=== PATIENT | male | born 1980 | race Caucasian/White ===

== ENCOUNTER 2022-10-05 17:02 | Inpatient (IN) | payer OTHER, SELFPAY ==
[~2022-10-05] VITALS: Ht 188 cm; Wt 123.8 kg
[2022-10-05] MEDS ORDERED: BUSP15TA47 PO (17:17)
[2022-10-05] MEDS ORDERED: LISI40TA4 PO (17:17)
[2022-10-05] MEDS ORDERED: NS 1,000 ML IV SCH (18:15)
[2022-10-05] MEDS ORDERED: PANTOPRAZOLE SODIUM 40 MG in D5W 50 ML IV SCH (18:15)
[2022-10-05] MEDS ORDERED: lisinopriL 40MG TAB PO ONE (18:35)
[2022-10-05] MEDS ORDERED: HOME MED LIST COMPLETE! XX SCH (18:35)
[2022-10-05] MEDS ORDERED: hydrALAZINE 20MG/ML 1ML VIAL IV ONE (20:30)
[2022-10-05 21:11] LABS: HEMATOCRIT 37.9 % (42.0-52.0)
[2022-10-05] MEDS ORDERED: TEMAZEPAM 7.5 MG CAP PO PRN (21:20)
[2022-10-05 21:48] LABS: BLOOD UREA NITROGEN 15 MG/DL (9-23); CALCIUM LEVEL 10.4 MG/DL (8.5-10.1); CARBON DIOXIDE LEVEL 27 MMOL/L (20-31); CHLORIDE LEVEL 105 MMOL/L (98-107); CREATININE FOR GFR 1.06 MG/DL (0.70-1.30); GLOMERULAR FILTRATION RATE > 60.0 (>60); GLUCOSE, FASTING 97 MG/DL (60-100); MAGNESIUM LEVEL 1.6 MG/DL (1.8-2.4); POTASSIUM SERUM 4.2 MMOL/L (3.5-5.1); SODIUM LEVEL 140 MMOL/L (136-145)
[2022-10-05 21:50] VITALS: BP 174/90
[2022-10-05] MEDS: **hydrALAZINE** 10 MG TAB PO PRN (22:20)
[2022-10-05] MEDS: PANTOPRAZOLE SODIUM 40 MG in D5W 50 ML IV SCH (22:20)
[2022-10-05] MEDS: NS 1,000 ML IV SCH (22:21)
[2022-10-05] MEDS ORDERED: MORPHINE 2 MG/ML 1ML VIAL IV ONE (22:30)
[2022-10-05] MEDS ORDERED: SUCRALFATE SUSP 1GM/10ML UD PO ONE (22:30)
[2022-10-05] MEDS: MAGNESIUM OXIDE 400MG TAB (MAG-OX) PO SCH (22:49)
[2022-10-06] VITALS (11 sets, daily range): BP systolic 138–162; BP diastolic 72–108
[2022-10-06] MEDS ORDERED: NS 500 ML IV ONE (01:35)
[2022-10-06] MEDS ORDERED: MORPHINE 2 MG/ML 1ML VIAL IV ONE (01:55)
[2022-10-06] MEDS: NS 1,000 ML IV SCH ×2 (02:41→12:05)
[2022-10-06] MEDS: PANTOPRAZOLE SODIUM 40 MG in D5W 50 ML IV SCH ×2 (02:41→08:11)
[2022-10-06] MEDS ORDERED: MORPHINE 2 MG/ML 1ML VIAL IV PRN (02:55)
[2022-10-06] MEDS ORDERED: SUCRALFATE SUSP 1GM/10ML UD PO ONE (02:55)
[2022-10-06 03:17] LABS: HEMATOCRIT 37.1 % (42.0-52.0); HEMOGLOBIN 12.5 g/dl (13.5-17.5)
[2022-10-06] MEDS: **hydrALAZINE** 10 MG TAB PO PRN (06:03)
[2022-10-06 06:04] LABS: HEMATOCRIT 37.8 % (42.0-52.0); HEMOGLOBIN 12.7 g/dl (13.5-17.5); MEAN CORPUSCULAR HEMOGLOBIN 31.7 pg (27.0-33.0); MEAN CORPUSCULAR HGB CONC 33.6 g/dl (32.0-36.5); MEAN CORPUSCULAR VOLUME 94.3 fl (80.0-96.0); PLATELET COUNT, AUTOMATED 246 10^3/uL (150-450); RED BLOOD COUNT 4.01 10^6/uL (4.30-6.10); WHITE BLOOD COUNT 13.7 10^3/uL (4.0-10.0)
[2022-10-06 06:37] LABS: BLOOD UREA NITROGEN 14 MG/DL (9-23); CALCIUM LEVEL 9.2 MG/DL (8.5-10.1); CARBON DIOXIDE LEVEL 27 MMOL/L (20-31); CHLORIDE LEVEL 105 MMOL/L (98-107); CREATININE FOR GFR 0.92 MG/DL (0.70-1.30); GLOMERULAR FILTRATION RATE > 60.0 (>60); GLUCOSE, FASTING 96 MG/DL (60-100); POTASSIUM SERUM 4.3 MMOL/L (3.5-5.1); SODIUM LEVEL 142 MMOL/L (136-145)
[2022-10-06] MEDS ORDERED: PANTOPRAZOLE 40MG TAB (PROTONIX) PO SCH (09:00)
[2022-10-06] MEDS ORDERED: MAGNESIUM OXIDE 400MG TAB (MAG-OX) PO SCH (09:00)
[2022-10-06] MEDS: MAGNESIUM OXIDE 400MG TAB (MAG-OX) PO SCH (09:00)
[2022-10-06] MEDS ORDERED: NITROGLYCERIN 2% OINT 1 GM *U/D* PKT TOP ONE (09:00)
[2022-10-06 09:26] LABS: HEMATOCRIT 37.6 % (42.0-52.0); HEMOGLOBIN 12.7 g/dl (13.5-17.5)
[2022-10-06] MEDS ORDERED: MIDAZOLAM INJ 2MG/2ML VIAL As Ordered ONE (10:47)
[2022-10-06] MEDS ORDERED: propofoL 200 MG/20 ML VIAL As Ordered ONE (10:47)
[2022-10-06] MEDS ORDERED: LIDOCAINE 2% 100MG/5ML SDV (FOR ANES.) As Ordered ONE (10:47)
[2022-10-06] MEDS ORDERED: fentaNYL 100 MCG/2 ML INJECTION As Ordered ONE (10:47)
[2022-10-06] MEDS ORDERED: ONDANSETRON 4MG 2ML VIAL IV PRN (10:50)
[2022-10-06] MEDS ORDERED: fentaNYL 100 MCG/2 ML INJECTION IV PRN (10:50)
[2022-10-06] MEDS ORDERED: LR 1,000 ML IV SCH (10:50)
[2022-10-06] MEDS ORDERED: CARA1TAB6 PO (11:38)
[2022-10-06] MEDS ORDERED: PANT40TA29 PO (11:38)
[2022-10-06] MEDS ORDERED: SUCRALFATE 1 GM TAB PO SCH (12:00)
[2022-10-06] MEDS ORDERED: METOCLOPRAMIDE INJ 10MG/2ML VIAL IV ONE (12:15)
[2022-10-06] MEDS ORDERED: ACETAMINOPHEN TAB 650MG DOSE (2X325MG) PO PRN (12:15)
[2022-10-06] MEDS ORDERED: HYDROMORPHONE HCL 0.5 MG/ 0.5 ML SYRINGE IV ONE (12:15)
[2022-10-06] MEDS ORDERED: ACETAMINOPHEN 500 MG TAB PO ONE (12:15)
[2022-10-06] MEDS ORDERED: MAGNESIUM OXIDE 400MG TAB (MAG-OX) PO ONE (13:00)
== END 2022-10-06 16:02 | disposition home or self-care (01) | DRG 253 ==
LOC: M ED 17:02 → M ED INP 19:14 → M MSPAV 21:51
PROVIDERS: ADMIT Internal Medicine; ATTEND General Practice
PROC: 0DD58ZX Extraction of Esophagus, Via Natural or Artificial Opening Endoscopic, Diagnostic (ICD-10-PCS; 2022-10-06)
PROC: 0DD68ZX Extraction of Stomach, Via Natural or Artificial Opening Endoscopic, Diagnostic (ICD-10-PCS; principal; 2022-10-06 09:30)
DX: K92.0 Hematemesis (principal); I10 Essential (primary) hypertension; K44.9 Diaphragmatic hernia without obstruction or gangrene; F41.9 Anxiety disorder, unspecified; K21.00 Gastro-esophageal reflux disease with esophagitis, without bleeding; Z79.899 Other long term (current) drug therapy; F32.A Depression, unspecified